=== PATIENT | female | born 1950 | race Two or more races ===

== ENCOUNTER 2025-10-27 15:19 | Outpatient (CLI) | payer OTHER | END 2025-10-27 15:21 | disposition home or self-care (01) | LOC: SONOGRAMA 15:19 | PROVIDERS: ATTEND Pathology Anatomic Pathology & Clinical Pathology | DX: D44.0 Neoplasm of uncertain behavior of thyroid gland (principal); D34 Benign neoplasm of thyroid gland; E07.89 Other specified disorders of thyroid; E04.2 Nontoxic multinodular goiter ==